=== PATIENT | female | born 1975 | race Asian ===

== ENCOUNTER 2017-04-21 10:29 | Emergency (ER) | payer OTHER ==
[~2017-04-21] VITALS: Ht 162.6 cm; Wt 98.0 kg
[2017-04-21 10:39] VITALS: BP 153/88
--- NOTE | 2017-04-21 12:42 | NUR ---
Patient ambulated to bed 5. RN evaluating patient at bedside.
--- NOTE | 2017-04-21 12:44 | NUR ---
41/F PRESENT TO ER C/O HEADACHE x TODAY @ 0600. HX: HTN MEDS: ATENOLOL 50MG, HYDROCODONE 10 MG, MOTRIN 800MG . DENIES N/V/D; SKIN IS PINK/WARM/DRY; AAOX4 WITH EVEN AND STEADY GAIT; LUNGS CLEAR BL; HR EVEN AND REGULAR; PT DENIES ANY FEVER, CP, SOB, OR COUGH AT THIS TIME; PATIENT STATES PAIN OF 6/10 AT THIS TIME; VSS; PATIENT POSITIONED FOR COMFORT; HOB ELEVATED; BEDRAILS UP X2; BED DOWN. ER MD MADE AWARE OF PT STATUS.
--- NOTE | 2017-04-21 13:25 | NUR ---
DR VALERIO ASSESSING AAO PT AT BEDSIDE
[2017-04-21] MEDS: LIDOCAINE 1% 500 MG/50 ML VIAL INJ ONE (13:35)
[2017-04-21] MEDS ORDERED: LIDOCAINE 1% ED 0 ML ONE (13:39)
--- NOTE | 2017-04-21 14:38 | NUR ---
Patient discharged with v/s stable. Written and verbal after care instructions given and explained. Patient alert, oriented and verbalized understanding of instructions. Ambulatory with steady gait. All questions addressed prior to discharge. ID band removed. Patient advised to follow up with PMD. Rx of XANAX given. Patient educated on indication of medication including possible reaction and side effects. Opportunity to ask questions provided and answered. PT WANTS TO GO HOME DUE TO EMERGENCY AT HOME, DR VALERIO NOTIFIED
[2017-04-21 15:02] VITALS: BP 122/94
== END 2017-04-21 14:38 | disposition home or self-care (01) ==
LOC: MED 10:29
DX: G44.209 Tension-type headache, unspecified, not intractable (principal); I10 Essential (primary) hypertension; M54.2 Cervicalgia; M54.6 Pain in thoracic spine; Z88.0 Allergy status to penicillin
CPT/HCPCS: 93005; 99283; J2001